=== PATIENT | male | born 1950 | race Caucasian/White ===

== ENCOUNTER 2016-11-18 13:07 | Emergency (ER) | payer OTHER ==
[2016-11-18 13:23] VITALS: BP 184/87
[2016-11-18] MEDS ORDERED: DOXYcycline CAP(*) 100 MG PO ONE (14:45)
--- NOTE | 2016-11-18 21:53 | ED ---
Skin Complaint - HPI Summary HPI Summary: Pt here w/ tick on Rt upper chest. Noticed today but reports he was lying on his back, under his boat Monday and Monday and suspects tick jumped on then, It 's engorged and pt noted some soreness in the area where it's attached which prompted him to look. Appears to still be alive. Imms are UTD. No kate EM rash nor fever, chills, N/V/D, chest pain, JADE, or joint pains. He is here visiting his daughter - he lives in [place]. 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 - Pain Intensity: 2 - Allergy/Home Medications Home Medications: Home Medications Amitriptyline TAB* [Elavil TAB*] 90 mg PO BEDTIME 11/18/16 [History Confirmed ] Atorvastatin* [Lipitor*] 10 mg PO DAILY 11/18/16 [History Confirmed 11/18/16] Gabapentin CAP(*) [Neurontin 300 CAP(*)] 300 mg PO Q4HR PRN 11/18/16 [History Confirmed 11/18/16] Hydrochlorothiazide TAB* [Hydrodiuril TAB*] 25 mg PO DAILY 11/18/16 [History Confirmed 11/18/16] Levothyroxine TAB* [Synthroid TAB*] 112 mcg PO DAILY 11/18/16 [History Confirmed 11/18/16] Probiotic Product [Probiotic Daily] 1 cap PO DAILY 11/18/16 [History Confirmed 11/18/16] PMH/Surg Hx/FS Hx/Imm Hx Previously Healthy: Yes Endocrine/Hematology History: Denies: Hx Anticoagulant Therapy, Hx Blood Disorders, Hx Diabetes, Autoimmune Disease Infectious Disease History: No Infectious Disease History: Denies: Hx of Known/Suspected MRSA, Traveled Outside the [place] in Last 30 Days - Family History Known Family History: Positive: None - Social History Occupation: Employed Full-time Lives: With Family Alcohol Use: Occasionally Hx Substance Use: No Substance Use Type: Reports: None Hx Tobacco Use: Yes Smoking Status (MU): Former Smoker Review of Systems Constitutional: Negative Negative: Fever, Chills Negative: Chest Pain Negative: Shortness Of Breath Negative: Vomiting, Nausea Positive: no symptoms reported Negative: Arthralgia, Myalgia, Decreased ROM, Edema Skin: Other - see HPI Negative: Headache, Weakness, Paresthesia Psychological: Normal All Other Systems Reviewed And Are Negative: Yes Physical Exam Triage Information Reviewed: Yes Vital Signs On Initial Exam: Initial Vitals Temp Pulse Resp BP Pulse Ox 98.5 F 85 16 184/87 100 11/18/16 13:21 11/18/16 13:21 11/18/16 13:21 11/18/16 13:21 11/18/16 13:21 Vital Signs Reviewed: Yes Appearance: Positive: Well-Appearing, No Pain Distress, Well-Nourished Skin: Positive: Warm, Dry - live engorged tick attached to pt's Rt upper chest wall - removed via spiral rotation device - fully intact and living - placed in specimen jar - pt's wound cleaned w/ alcohol - no EM rash but macular erythema 3mm in size focal to sight Head/Face: Positive: Normal Head/Face Inspection Eyes: Positive: Normal, EOMI, Conjunctiva Clear ENT: Positive: Other - mild hearing difficulty Respiratory/Lung Sounds: Positive: Breath Sounds Present Cardiovascular: Positive: Normal Musculoskeletal: Positive: Normal, Strength/ROM Intact Neurological: Positive: Normal, Sensory/Motor Intact, Alert, Oriented to Person Place, Time, CN Intact II-III Psychiatric: Positive: Normal Procedures - Procedure Summary Procedure Summary: Tick removed - see SKIN in PE - pt tolerated well Diagnostics - Vital Signs Vital Signs Temp Pulse Resp BP Pulse Ox 11/18/16 13:24 98.5 F 73 20 184/87 100 11/18/16 13:21 98.5 F 85 16 184/87 100 - Laboratory Lab Statement: Any lab studies that have been ordered have been reviewed, and results considered in the medical decision making process. Course/Dx - Course Course Of Treatment: Tick removed w/o difficulty - since this was possibly attached for > 36 hours, doxycycline prophylactic anbx was provided today. Pt advised to f/u w/ PCP and monitor sx. Provided pt w/ tick in specimen cup in case he wanted to have this tested at a later date. Reviewed danger s/sx of when to return to ED. - Diagnoses Provider Diagnoses: Tick bite of right male breast Discharge - Discharge Plan Condition: Stable Disposition: HOME Patient Education Materials: Tick Bite (ED) Referrals: No Primary Care Phys,NOPCP [Primary Care Provider] - Additional Instructions: You have a tick bite and tick has most likely been attached for longer than 36 hours. This was removed completely today and you were provided with specimen for testing at your leisure. You were prophylactically treated with a 1 x dose of doxycycline today. It is important that you follow-up with your PCP this week. Monitor area for signs/symptoms of infection (ie. redness, swelling, drainage, fever). Seek medical attention sooner if these symptoms present.
== END 2016-11-18 15:05 | disposition home or self-care (01) ==
LOC: ED 13:07
DX: S20.361A Insect bite (nonvenomous) of right front wall of thorax, initial encounter (principal); W57.XXXA Bitten or stung by nonvenomous insect and other nonvenomous arthropods, initial encounter; Y92.9 Unspecified place or not applicable; Z87.891 Personal history of nicotine dependence
CPT/HCPCS: 99281; A9270-GY